=== PATIENT | female | born 1940 | race Caucasian/White ===

== ENCOUNTER 2017-10-24 11:45 | Inpatient (IN) ==
--- NOTE | 2017-10-24 12:19 | Emergency Department Note ---
Disposition Clinical Impression: Pulmonary edema Qualifiers: Chronicity: acute Qualified Code(s): J81.0 - Acute pulmonary edema Chest pain Qualifiers: Chest pain type: precordial pain Qualified Code(s): R07.2 - Precordial pain Disposition: Admitted As Inpatient Referrals: Sukh Piña MD [Primary Care Provider] - Forms: ED Satisfaction Letter Time of Disposition: 13:43 Chest Pain HPI - General Chief Complaint: ED Chest Pain Stated Complaint: need CAT scan sent per pcp. cp/sob Time Seen by Provider: 10/24/17 11:55 Source: patient Limitations: no limitations Vital Signs Reviewed: Yes Nursing Notes Reviewed: Yes - History of Present Illness HPI Narrative: This is a 77-year-old female sent from rheumatology because of chest pain. She states she has been having episodes of exertional chest pain with radiation into her left back for the last 2 weeks. She states that her chief nurse anesthetist has been tapering down her prednisone dose and that she is now taking 7 mg of prednisone daily. She states that she has gained a significant amount of weight since she will started on prednisone she reports shortness of breath in addition to exertional chest pain. Both symptoms resolved when she sits down and rests. She states she has a history of GI bleeding while taking warfarin, and as a result has an IVC filter but no anticoagulation. Severity scale (1-10): 5 - Related Data Home Medications Medication Instructions Recorded Confirmed Acetaminophen [Tylenol] 650 mg PO Q6HR PRN 03/19/17 03/19/17 Aspirin 81 mg PO DAILY 03/19/17 03/19/17 Diltiazem HCl [Diltiazem 12Hr ER] 120 mg PO DAILY 03/19/17 03/19/17 Ergocalciferol (VITAMIN D2) 50,000 unit PO QMONTH 03/19/17 03/19/17 [Vitamin D2] Levothyroxine Sodium 112 mcg PO 0630 03/19/17 03/19/17 Pregabalin [Lyrica] 100 mg PO BID 03/19/17 03/19/17 Warfarin [Coumadin] 5 mg PO 1800 03/19/17 03/19/17 Allergies Allergy/AdvReac Type Severity Reaction Status Date / Time Hydromorphone [From Dilaudid] Allergy Difficulty Verified 10/24/17 11:51 Breathing ibuprofen Allergy Abdominal Verified 10/24/17 11:51 Pain All systems ED: reviewed and negative except as stated. Constitutional: Reports: weight change (Weight gain since on prednisone) Eyes: Denies: eye pain, eye discharge, vision change Cardiovascular: Reports: chest pain (Exertional chest pain), dyspnea on exertion Respiratory: Reports: dyspnea (Shortness of breath with exertion). Denies: cough, wheezes, sputum production Gastrointestinal: Denies: abdominal pain, nausea, vomiting, diarrhea, constipation, hematemesis, melena, hematochezia Genitourinary: Denies: dysuria, frequency, hematuria, discharge Musculoskeletal: Reports: back pain, other (Left shoulder pain) Integumentary: Denies: rash, abrasion, lesions Psychiatric: Denies: anxiety, depression, suicidal thoughts, homicidal thoughts , auditory hallucinations, visual hallucinations Endocrine: Denies: fatigue Hematological/Lymphatic: Denies: easy bleeding, easy bruising Chest Pain PMH - Past Medical History Medical history: Reports: atrial fibrillation, DVT (12/2016), glaucoma, kidney stones, osteoporosis, thyroid disease Psychiatric history: Reports: no psych history - Social History Smoking Status: Never smoker Alcohol use: Reports: none Drug use: Reports: none Physical Exam - General Limitations: no limitations General appearance: alert, in no apparent distress - Head Head exam: atraumatic, normocephalic, normal inspection - Eye Eye exam: Present: normal appearance, PERRL, EOMI - Neck Neck exam: Present: normal inspection, full ROM, trachea midline - Chest Chest inspection: Present: normal inspection, symmetric chest wall rise - Respiratory Respiratory exam: Present: normal lung sounds bilaterally - Cardiovascular Cardiovascular exam: Present: regular rate, normal rhythm, normal heart sounds - Abdominal Exam Abdominal exam: Present: soft, Non-Tender. Absent: tenderness, distention, guarding, rebound, rigidity - Extremities Exam Extremities exam: Present: normal inspection, full ROM. Absent: tenderness, pedal edema - Neurological Exam Neurological exam: Present: alert, oriented X3 - Psychiatric Psychiatric exam: Present: normal affect, normal mood - Skin Skin exam: Present: warm, dry, intact, normal color Course Course Narrative: This is a 77 y/o female with exertional chest oain with radiation to the left shoulder. Most likely explanation is angina. Vital Signs Temperature 97.7 F 10/24/17 11:51 Pulse Rate 91 10/24/17 11:51 Respiratory Rate 24 10/24/17 11:51 Blood Pressure 100/66 10/24/17 11:51 O2 Sat by Pulse Oximetry 93 10/24/17 11:51 Temperature 97.7 F 10/24/17 11:51 Pulse Rate 73 10/24/17 12:16 Respiratory Rate 18 10/24/17 12:16 Blood Pressure 116/91 10/24/17 12:16 O2 Sat by Pulse Oximetry 93 10/24/17 12:16 Oxygen Delivery Oxygen Delivery Nasal Cannula Chest Pain - MDM Narrative Medical decision making narrative: This is a 77-year-old female who appears to have CHF. She has no prior history of CHF, but her exertional chest pain and shortness of breath consistent with that etiology. Because her blood pressure was in the age of 110-120 systolic, I ordered enalaprilat and his first dose of furosemide to assist in volume redistribution. I discussed her name with the on-call hospitalist, who accepted her for admission - Lab Data Lab results reviewed: Yes I reviewed the patient's lab results. Lab results narrative: CBC shows slight leukocytosis BMP was unremarkable Troponin was low Result diagrams: 10/24/17 12:30 10/24/17 12:30 Lab Results 10/24/17 10/24/17 Range/Units 12:30 12:30 WBC 12.7 H (4.3-11.1) K/mcL RBC 4.12 (3.82-4.97) M/mcL Hgb 11.8 (11.5-15.4) g/dL Hct 38.2 (35.3-44.9) % MCV 92.7 (83.0-100.0) fL MCH 28.6 (28.0-33.3) pg MCHC 30.9 L (31.6-35.5) g/dL RDW 15.2 H (11.5-14.5) % Plt Count 258 (140-400) K/mcL MPV 9.7 (9.4-12.4) fL Immature Gran % 0.8 (0-4) % Seg Neutrophils % 79.3 % Lymphocytes % 8.4 % Monocytes % 8.5 % Eosinophils % 2.4 % Basophils % 0.6 % Neutrophils # 10.1 H (1.6-8.9) K/mcL Lymphocytes # 1.1 (0.6-4.6) K/mcL Monocytes # 1.1 (0.0-1.3) K/mcL Eosinophils # 0.3 (0.0-0.6) K/mcL Basophils # 0.1 (0.0-0.2) K/mcL Sodium 138 (136-145) mEq/L Potassium 3.7 (3.5-5.1) mEq/L Chloride 106 (98-107) mEq/L Carbon Dioxide 23 (23-29) mEq/L BUN 15 (8-23) mg/dL Creatinine 0.89 (0.60-1.20) mg/dL Est GFR ( Amer) > 60 (> 60) Est GFR (Non-Af Amer) > 60 (> 60) BUN/Creatinine Ratio 17 (6-26) Glucose 204 H (70-105) mg/dL Calculated Osmolality 293 (280-300) Calcium 9.1 (8.6-10.3) mg/dL Troponin I < 0.03 (< 0.04) ng/mL - Radiology Data Radiology results reviewed: Yes I reviewed the patient's radiology results. Chest x-ray showed moderate left and small right pleural effusions with interstitial edema consistent with CHF. - EKG Data EKG attestation: Yes I reviewed and interpreted this EKG. EKG results narrative: ECG showed sinus rhythm, 1 PVC, normal intervals, normal axis, no ST Ya, T- wave inversions in V2 through V5
[2017-10-24 12:40] LABS: Basophils # 0.1 K/mcL (0.0-0.2); Basophils % 0.6 %; Eosinophils # 0.3 K/mcL (0.0-0.6); Eosinophils % 2.4 %; Hematocrit 38.2 % (35.3-44.9); Hemoglobin 11.8 g/dL (11.5-15.4); Immature Granulocytes % 0.8 % (0-4); Lymphocytes # 1.1 K/mcL (0.6-4.6); Lymphocytes % 8.4 %; Mean Corpuscular HGB Conc 30.9 g/dL (31.6-35.5); Mean Corpuscular Hemoglobin 28.6 pg (28.0-33.3); Mean Corpuscular Volume 92.7 fL (83.0-100.0); Mean Platelet Volume 9.7 fL (9.4-12.4); Monocytes # 1.1 K/mcL (0.0-1.3); Monocytes % 8.5 %; Neutrophils # 10.1 K/mcL (1.6-8.9); Platelet Count 258 K/mcL (140-400); Red Blood Count 4.12 M/mcL (3.82-4.97); Red Cell Distribution Width 15.2 % (11.5-14.5); Segmented Neutrophils % 79.3 %
[2017-10-24 13:06] LABS: BUN/Creatinine Ratio 17 (6-26); Blood Urea Nitrogen 15 mg/dL (8-23); Calcium 9.1 mg/dL (8.6-10.3); Carbon Dioxide 23 mEq/L (23-29); Chloride 106 mEq/L (98-107); Glucose 204 mg/dL (70-105); Osmolality,Calculated 293 (280-300); Potassium 3.7 mEq/L (3.5-5.1); Sodium 138 mEq/L (136-145); eGFR For Non-African Americans > 60 (> 60)
[2017-10-24 13:14] LABS: Troponin I < 0.03 ng/mL (< 0.04)
[2017-10-24] MEDS ORDERED: Furosemide 20 MG/2 ML VIAL IVP ONE (13:21)
[2017-10-24] MEDS ORDERED: Isovue-370 500 ML INFUS..BTL IV ONE (14:33)
[2017-10-24] MEDS ORDERED: Naloxone 0.4 MG/ML INJ IVP PRN (14:34)
[2017-10-24] MEDS: Pantoprazole 40 MG VIAL IVP SCH (15:16)
[2017-10-24] MEDS ORDERED: Aminoglycoside Consult 1 EACH MC ONE (15:21)
--- NOTE | 2017-10-24 15:34 | Internal Med History&Physical ---
<Georges Alejandra - Last Filed: 10/24/17 22:51> Date of Encounter: 10/24/17 Time of Encounter: 13:30 Internal Medicine - H&P: HPI Chief complaint: CP Admitted From: Emergency Dept Plans for Post Hospital Care: Home History of present illness: Ms. Duarte is a 77 year old female w/PMH of atrial fibrillation, DVT/PE in 12/2016 , cataracts, kidney stones, osteoporosis, and thyroid disease presents from the ED with chief complaint of chest pain that began last week and has been intermittent. Patient reports chest pain as centralized in chest with radiation to her left shoulder which becomes worse with exertion. Associated symptoms: Fatigue, weakness, SOB, diaphoresis. Patient also reports she has been weak for the past month following a 41 day admission at [place] for GI bleed. Was previously on Coumadin. Atrial fibrillation but was taken off following GI bleed and IVC filter placement. Not currently anticoagulated. Patient denies recent illness, fever, chills, nausea, vomiting, headache, changes in vision, abdominal pain, diarrhea, constipation, cough, chest congestion, dizziness, lightheadedness, numbness, tingling, pre-syncope, or syncope. Past Med Surg Social Fam HX - Past Medical History Source: patient, old records reviewed, obtained from family Medical history: atrial fibrillation, DVT (12/2016), kidney stones, osteoporosis , thyroid disease, other (Cataracts) Additional medical history: IRREGULAR HEARTBEAT. HEADACHES. VENOUS INSUFFICIENCY. VARICOSE VEINS Psychiatric history: no psych history - Past Surgical History Additional surgical history: THYROIDECTOMY. CATARACT REMOVAL. KIDNEY STONES REMOVED X2. VEIN SURGERY. SHOULDER SCOPE. COLONOSCOPY - Social History Smoking Status: Never smoker Smokeless Tobacco Status: No Alcohol use: none Drug use: none Current living situation: Home, With Family Activity Level: Uses cane/walker Recent Out of Country Travel Within the Last 8 Weeks: No Exposure or Possible Exposure to Illness During Travel: No - Family History Father Race: Family Member Ethnicity: Non- Living Status: Age at : 31 Cause of : Leukemia Hx Family Cancer: Yes (Leukemia) Mother Race: Family Member Ethnicity: Non- Living Status: Age at : 79 Cause of : Brain aneurysm Hx Family Cardiac Disorders: Yes (Brain aneurysm) Brother Race: Family Member Ethnicity: Non- Living Status: Still Living Hx Family Cardiac Disorders: Yes (CAD) Hx Family Respiratory Disorders: Yes (COPD) Sister Race: Family Member Ethnicity: Non- Living Status: Still Living Hx Family GI Disorders: Yes (Diverticulosis) Internal Medicine - H&P: Meds Ergocalciferol (VITAMIN D2) [Vitamin D2] 50,000 unit PO QMONTH 03/19/17 [History ] Levothyroxine Sodium 112 mcg PO 0630 03/19/17 [History] Diltiazem CD (24hr) [Cardizem CD] 240 mg PO DAILY 10/24/17 [History] predniSONE [PredniSONE] 2 mg PO DAILY 10/24/17 [History] 3 Allergy/AdvReac Type Severity Reaction Status Date / Time Hydromorphone [From Dilaudid] Allergy Difficulty Verified 10/24/17 11:51 Breathing ibuprofen Allergy Abdominal Verified 10/24/17 11:51 Pain iron AdvReac See Verified 10/24/17 15:37 Comments All Systems PM: A 10-system review of systems was performed and is negative for pertinent findings except as documented above in the HPI. - Constitutional Constitutional: as per HPI, fatigue, weakness (Bilateral LEs), weight gain (D/t steroids), no chills, no fever(s), no night sweats - EENT Eyes: no change in vision, no discharge, no pain, no photophobia Ears: no ear discharge, no ear pain, no tinnitus Nose, mouth and throat: no dysphagia, no nasal discharge, no neck pain, no sore throat - Breasts Breasts: as per HPI - Cardiovascular Cardiovascular ROS IM: as per HPI, chest pain, diaphoresis, dyspnea, dyspnea on exertion, irregular heart rhythm, no lightheadedness, no palpitations, no syncope - Respiratory Respiratory: as per HPI, dyspnea, no cough, no wheezing, no excessive phlegm production - Gastrointestinal Gastrointestinal: no abdominal pain, no diarrhea, no hematemesis, no hematochezia, no melena, no nausea, no vomiting - Genitourinary Genitourinary: no change in urinary stream, no dysuria, no flank pain, no hematuria Menstruation: as per HPI - Musculoskeletal Musculoskeletal ROS IM: no numbness, no tingling - Integumentary Integumentary IM: no rash, no unusual bruising - Neurological Neurological ROS: no confusion, no convulsions, no focal weakness, no numbness, no tingling, no tremor(s) - Psychiatric Psychiatric: as per HPI - Endocrine Endocrine IM: as per HPI - Hematologic/Lymphatic Hematologic/Lymphatic: no easy bruising - Allergic/Immunologic Allergic/Immunologic: as per HPI - Constitutional Vitals: Temp Pulse Resp BP Pulse Ox 97.7 F 78 15 94/58 93 10/24/17 15:28 10/24/17 15:28 10/24/17 15:28 10/24/17 15:28 10/24/17 15:28 General appearance: Present: cooperative, A&O X 3, pleasant, no acute distress, obese, answers questions appropriately - Head Head exam: Present: atraumatic, normocephalic - Eye Eye exam: Present: PERRL, conjuntiva pink, sclera anicteric Pupils: Present: PERRL - ENT ENT exam: Present: normal exam - Neck Neck exam general surgery: Present: normal inspection, supple, trachea midline. Absent: lymphadenopathy - Respiratory Respiratory exam: Present: CTAB. Absent: accessory muscle use, rales, rhonchi, wheezes - Cardiovascular Cardiovascular exam: Present: RRR, +S1, +S2. Absent: diastolic murmur, gallop, rubs, systolic murmur - GI/Abdominal GI/Abdominal exam: Present: normal bowel sounds, soft, no peritoneal signs. Absent: distended, tenderness - Rectal Rectal exam: Present: deferred - Additional comments: exam deferred. - Extremities Exam Extremities exam: Present: warm, radial pulses palpable and symmetrical. Absent : calf tenderness, cyanotic, pedal edema - Back Exam Back exam: Present: normal inspection - Neurological Exam Neurological exam: Present: CN II-XII intact, oriented X3, no focal deficits. Absent: pronater drift, facial droop, speech deficit - Psychiatric Psychiatric exam: Present: normal affect, normal mood - Skin Skin exam: Present: dry, intact Internal Med - H&P Results - Labs CBC & Chem 7: 10/24/17 12:30 10/24/17 12:30 - EKG Data EKG shows normal: sinus rhythm - EKG Data Prior EKG available for review: yes EKG comments: 10/24/17 15:41 EKG dated 02/23/11 shows sinus rhythm with possible anterior infarct of indeterminate age. EKG dated 10/24/17 shows sinus rhythm with occasional ventricular premature complexes and nonspecific T-wave abnormality. - Impressions ITS Impressions Chest CTA 10/24/17 14:33 IMPRESSION: 1. No evidence of pulmonary embolism 2. Multifocal peripheral infiltrates having appearance most consistent with pneumonia. No definite CHF D/ / Forest Kenny MD / Forest Kenny MD Interpreting Provider: Forest Kenny MD - Diagnostic Studies Chest x-ray Additional comments: Impressions Chest X-Ray 10/24/17 12:16 IMPRESSION: Cardiomegaly with moderate left and small right pleural effusions as well as mild interstitial pulmonary edema suggesting CHF. D/ / Tapan Lindo MD / Tapan Lindo MD Interpreting Provider: Tapan Lindo MD CT scan - chest Additional comments: Impressions Chest CTA 10/24/17 14:33 IMPRESSION: 1. No evidence of pulmonary embolism 2. Multifocal peripheral infiltrates having appearance most consistent with pneumonia. No definite CHF D/ / Forest Kenny MD / Forest Kenny MD Interpreting Provider: Forest Kenny MD - Assessment and plan (1) Chest pain Current Visit: Yes Status: Acute Assessment and plan: Acute CP that patient states began last week and has been intermittent. Patient reports chest pain as centralized in chest with radiation to her left shoulder which becomes worse with exertion. Associated symptoms: Fatigue, weakness, SOB, diaphoresis. History of atrial fibrillation, DVT, PE. Denies history of previous CO or stent placement. Also denies recent cardiac workup. Initial troponin <0.03. Will trend. Aspirin given in ED. Lipitor 80 mg now. Nitroglycerin SL when necessary. Continuous cardiac telemetry. Echocardiogram. Nothing by mouth at midnight for a.m. stress test if troponins remain normal. Consider cardiology consult if troponins, echocardiogram, and/ or stress test results abnormal. Pt. discussed w/Dr. Rudolph who agrees w/plan of care. Pt. is high risk for further morbidity and cardiac event due to current CP symptoms for the past week that are unresolved, current HCAP, hx; and risk factors of atrial fibrillation not on anticoagulation and current obesity. Observation. Qualifiers: Chest pain type: precordial pain Qualified Code(s): R07.2 - Precordial pain (2) HCAP (healthcare-associated pneumonia) Current Visit: Yes Status: Acute Assessment and plan: Acute HCAP. Pt. reports 41-day hospitalization @ [place] in August for GI bleed. Current SOB and WBC of 12.7. CTA of chest to r/o PE d/t pts. hx shows no evidence of PE multifocal peripheral infiltrates having appearance most consistent with pneumonia. No definite CHF. Blood cultures 2. Legionella and strep pneumoniae antigens ordered. IVPB vancomycin with pharmacy dosing and Zosyn 3.375 gm Q8HR for infection coverage. Patient does not currently meet sepsis criteria but will be monitored closely. Monitor patient and follow- up labs. Supplemental O2 with titration and SPO2 monitoring. Xopenex IH. (3) SOB (shortness of breath) Current Visit: Yes Status: Acute Assessment and plan: Acute SOB w/CP sx. Concern for possible PE d/t pts. previous hx of PE in 2017. CTA of chest shows no evidence of pulmonary embolism. Supplemental O2 with titration and SPO2 monitoring. Xopenex IH due to patient's atrial fibrillation. (4) Weakness of both legs Current Visit: Yes Status: Acute Assessment and plan: Acute weakness of bilateral LEs following 41-day hospitalization approximately one month ago. Patient states she has difficulty with ambulation. Falls/ safety precautions. Up with assist only. PT/OT consults ordered. (5) Pulmonary edema Current Visit: Yes Status: Acute Assessment and plan: Acute pulmonary edema suggesting CHF on CXR. Also noted is cardiomegaly with moderate left and small right pleural effusions. Patient given 40 mg Lasix IVP in ED. And 0.5 L daily fluid restriction. Monitor I&O and daily weight. Will add additional IVP lasix if warranted. Currently no pedal edema on exam. Qualifiers: Chronicity: acute Qualified Code(s): J81.0 - Acute pulmonary edema (6) Atrial fibrillation Current Visit: Yes Status: Chronic Assessment and plan: Hx of chronic paroxysmal Afib. Currently SR. Continuous cardiac telemetry. Continue pts. Cardizem PO. Qualifiers: Atrial fibrillation type: paroxysmal Qualified Code(s): I48.0 - Paroxysmal atrial fibrillation (7) Personal history of DVT (deep vein thrombosis) Current Visit: Yes Status: Resolved Assessment and plan: Hx of DVT/PE in 12/2016. DVT was behind right knee. Pt. reports being on Coumadin but was taken off approx. 1 month ago following a GI bleed requiring blood transfusions and a 41-day hospital stay. IVC filter placed. SCDs for DVT prophylaxis. (8) DVT prophylaxis Current Visit: Yes Status: Acute Assessment and plan: Bilateral SCDs on LEs for DVT prophylaxis due to history of GI bleeding approximately one month requiring 11 transfusions and a 41-day hospital stay @ [place]. (9) Hx of thyroidectomy Current Visit: Yes Status: Chronic Assessment and plan: Hx of thyroidectomy. Continue patient's levothyroxine. - Time Spent With Patient Total time spent is greater than 50% in coordination of care (as documented) at patient's floor/unit and/or counseling patient: Greater than 35 minutes <Pietro Rudolph - Last Filed: 10/25/17 16:22> Date of Encounter: 10/25/17 Internal Medicine - H&P: HPI History of present illness: Ms. Duarte is a 77 year old female All Systems PM: A 10-system review of systems was performed and is negative for pertinent findings except as documented above in the HPI. - Constitutional Vitals: Temp Pulse Resp BP Pulse Ox 97.6 F 91 16 116/72 93 10/25/17 15:23 10/25/17 15:23 10/25/17 15:23 10/25/17 15:23 10/25/17 15:23 Internal Med - H&P Results - Labs CBC & Chem 7: 10/25/17 03:59 10/25/17 03:59 Labs: Short CBC 10/25/17 Range/Units 03:59 WBC 10.6 (4.3-11.1) K/mcL Hgb 10.8 L (11.5-15.4) g/dL Hct 35.5 (35.3-44.9) % Plt Count 248 (140-400) K/mcL Neutrophils # 7.4 (1.6-8.9) K/mcL BMP 10/25/17 03:59 Sodium 140 Potassium 4.2 Chloride 105 Carbon Dioxide 27 BUN 17 Creatinine 1.09 Glucose 129 H Calcium 8.6 Cardiac Enzymes 10/24/17 10/24/17 Range/Units 16:06 23:11 Troponin I < 0.03 < 0.03 (< 0.04) ng/mL Liver Function 10/25/17 Range/Units 03:59 Total Bilirubin 0.6 (0.3-1.0) mg/dL AST 9 L (13-39) Units/L ALT 7 (7-52) Units/L Alkaline Phosphatase 45 (34-104) Units/L Albumin 3.3 L (3.5-5.7) g/dL - Impressions ITS Impressions Chest CTA 10/24/17 14:33 IMPRESSION: 1. No evidence of pulmonary embolism 2. Multifocal peripheral infiltrates having appearance most consistent with pneumonia. No definite CHF D/ / Forest Kenny MD / Forest Kenny MD Interpreting Provider: Forest Kenny MD Echocardiogram 10/24/17 14:37 Impressions: LVEF 55%. Mild left ventricular diastolic dysfunction. Normal right ventricular structure and function. No significant valvular dysfunction. No pulmonary hypertension. Left Ventricular Wall Motion: Rest Echo Findings All wall segments showed normal motion. Findings: Study Quality * Technically adequate exam. ECG Findings * Normal sinus rhythm. Left Ventricle * LVEF 55%. * Mild left ventricular diastolic dysfunction. * Normal LV chamber size and wall thickness. Right Ventricle * Normal right ventricular structure and function. Left Atrium * Normal left atrial size. Right Atrium * Normal right atrial size. Mitral Valve * Normal mitral valve structure. * No mitral stenosis. * Trace mitral regurgitation. Aortic Valve * No aortic regurgitation. * Aortic valve not well visualized. * No aortic stenosis. Tricuspid Valve * Tricuspid valve not well visualized. * No tricuspid regurgitation. Pulmonic Valve * Pulmonic valve is not well visualized. * No pulmonic stenosis. * No pulmonic regurgitation. Pulmonary Artery * Pulmonary artery not well visualized. Aorta * Normally sized aortic root. Pericardium * There is no pericardial effusion present. Interatrial Septum * No evidence of PFO by color Doppler. IVC * The IVC is not well evaluated. - Attending Attestation Discussed with CASEY and agree with assessment and plan as above. Will rule patient out for ACS due to chest pain and treat with IV antibiotics as above for HAP - Assessment and plan (1) Atrial fibrillation Current Visit: Yes Status: Chronic Qualifiers: Atrial fibrillation type: paroxysmal Qualified Code(s): I48.0 - Paroxysmal atrial fibrillation (2) Pulmonary edema Current Visit: Yes Status: Acute Qualifiers: Chronicity: acute Qualified Code(s): J81.0 - Acute pulmonary edema (3) Chest pain Current Visit: Yes Status: Acute Qualifiers: Chest pain type: precordial pain Qualified Code(s): R07.2 - Precordial pain (4) Personal history of DVT (deep vein thrombosis) Current Visit: Yes Status: Resolved (5) SOB (shortness of breath) Current Visit: Yes Status: Acute (6) Weakness of both legs Current Visit: Yes Status: Acute (7) DVT prophylaxis Current Visit: Yes Status: Acute (8) HCAP (healthcare-associated pneumonia) Current Visit: Yes Status: Acute (9) Hx of thyroidectomy Current Visit: Yes Status: Chronic - Time Spent With Patient Total time spent is greater than 50% in coordination of care (as documented) at patient's floor/unit and/or counseling patient:
[2017-10-24] MEDS ORDERED: Nitroglycerin 0.4 MG TAB.SUBL SL PRN (15:37)
[2017-10-24] MEDS: Piperacillin/Tazobactam 3.375 GM in 0.9 % Sodium Chloride Mini Bag 100 ML IVPB SCH ×2 (16:23→23:39)
[2017-10-24] MEDS: Acetaminophen 325 MG TABLET PO PRN (20:09)
[2017-10-24] MEDS: Levalbuterol Neb 1.25 MG/3 ML IH SCH (22:17)
[2017-10-24] MEDS: Melatonin 3 MG TABLET PO PRN (22:47)
--- NOTE | 2017-10-25 02:14 | Electrocardiograph Report ---
[place] [id number] Test Date: 2017-10-24 Pat Name: Charline Duarte Department: 103 Room: 3B33 Gender: F Kitchen Stewardess: MARCOS : 1940 Requested By: Georges Dougherty Order Number: [id number] Reading MD: Alysha Grier Measurements Intervals [place] Rate: 77 P: 64 [place]: 164 QRS: -6 QRSD: 82 T: 36 QT: 355 QTc: 387 Interpretive Statements SINUS RHYTHM WITH OCCASIONAL VENTRICULAR PREMATURE COMPLEXES NONSPECIFIC T-WAVE ABNORMALITY Electronically Signed On 10-24-2017 16:07:15 EDT by Alysha Grier
[2017-10-25] MEDS: Acetaminophen 325 MG TABLET PO PRN ×3 (02:29→16:15)
[2017-10-25] MEDS: Levalbuterol Neb 1.25 MG/3 ML IH SCH ×4 (03:59→22:02)
[2017-10-25 04:19] LABS: Basophils # 0.1 K/mcL (0.0-0.2); Basophils % 0.6 %; Eosinophils # 0.3 K/mcL (0.0-0.6); Hematocrit 35.5 % (35.3-44.9); Hemoglobin 10.8 g/dL (11.5-15.4); Immature Granulocytes % 0.7 % (0-4); Lymphocytes # 1.7 K/mcL (0.6-4.6); Lymphocytes % 16.2 %; Mean Corpuscular HGB Conc 30.4 g/dL (31.6-35.5); Mean Corpuscular Hemoglobin 28.3 pg (28.0-33.3); Mean Corpuscular Volume 92.9 fL (83.0-100.0); Mean Platelet Volume 9.7 fL (9.4-12.4); Monocytes % 9.5 %; Neutrophils # 7.4 K/mcL (1.6-8.9); Platelet Count 248 K/mcL (140-400); Red Blood Count 3.82 M/mcL (3.82-4.97); Red Cell Distribution Width 15.5 % (11.5-14.5)
[2017-10-25 04:30] LABS: Albumin 3.3 g/dL (3.5-5.7); Albumin/Globulin Ratio 1.1 (1.1-2.2); Bilirubin,Total 0.6 mg/dL (0.3-1.0); Calcium 8.6 mg/dL (8.6-10.3); Chol/HDL Ratio 4.2 (0-4.9); Globulin 3.1 g/dL (2.4-3.5); Magnesium 1.8 mg/dL (1.6-2.6); Potassium 4.2 mEq/L (3.5-5.1); Total Protein 6.4 g/dL (6.4-8.9)
[2017-10-25 04:37] LABS: Prothrombin Time 11.7 Seconds (9.4-12.1)
[2017-10-25 04:45] LABS: Thyroid Stimulating Hormone 1.534 mcIU/mL (0.340-5.600)
[2017-10-25] MEDS ORDERED: Regadenoson 0.4 MG/5 ML SYRINGE IVP ONE (06:13)
[2017-10-25 07:34] LABS: Estimated Average Glucose 160 mg/dl; Hemoglobin A1C 7.2 %
[2017-10-25] MEDS ORDERED: predniSONE 1 MG TABLET PO SCH (09:00)
[2017-10-25] MEDS: Diltiazem CD (24hr) 240 MG CAPSULE PO SCH (09:06)
[2017-10-25] MEDS: Pantoprazole 40 MG VIAL IVP SCH (09:10)
[2017-10-25] MEDS ORDERED: predniSONE 5 MG TABLET PO ONE (09:49)
[2017-10-25] MEDS: Piperacillin/Tazobactam 3.375 GM in 0.9 % Sodium Chloride Mini Bag 100 ML IVPB SCH ×2 (10:39→19:44)
--- NOTE | 2017-10-25 17:49 | Internal Med Progress Note ---
Hospitalist Progress Note - Encounter Date of Encounter: 10/25/17 Time of Encounter: 10:45 - Subjective Interval History: Patient was seen and assessed at bedside at 10:45 AM. Patient repeatedly discussed her diet and stating that she had not had anything to drink since last night. She reports left lower quadrant "pain and bloating for a long time , a couple of months." She reports that she has seen her primary care provider' s and con any answers. She denies chest pain, shortness of breath, nausea, vomiting, diarrhea. She denies headache or blurred vision, no increased peripheral edema. - Exam Vitals: Temp Pulse Resp BP Pulse Ox 97.6 F 91 18 116/72 95 10/25/17 15:23 10/25/17 15:23 10/25/17 16:01 10/25/17 15:23 10/25/17 16:01 Exam: General: Pt resting quietly on bed, no distress. Skin: pwd, no rashes, lesions, redness Neurological: Pt is alert and awake, oriented x 3, Speech is clear, PERRLA, EOMI , no nystagmus, no pronator drift. strength equal x 4 extremities HEENT: mucous mumbranes moist, no conjuctival pallor Neck: supple, no tracheal deviation, no lymphadenopathy, tenderness, no thyromegaly Heart: S1S2 heard without gallops, clicks, murmurs, no bradycardia or tachycardia, pt has no peripheral edema, pedal and radial pulses palpable bilaterally. Lungs: clear and diminished throughout without wheezing, rales, or ronchi, respirations are unlabored Abdomen: soft with bowel sound present, no hepatomegaly. Abdomen is rounded, obese, tender to palpation and left lower quadrant. Psych: Normal affect with good eye contact - Assessment and Plan (1) Atrial fibrillation Current Visit: Yes Status: Chronic Assessment and Plan: History of chronic A. fib. Normal sinus on the monitor. Continue Cardizem and Eliquis by mouth. Continue telemetry (2) Pulmonary edema Current Visit: Yes Status: Acute Assessment and Plan: Acute pulmonary edema suggesting CHF on CXR. Also noted is cardiomegaly with moderate left and small right pleural effusions. 1.5 L daily fluid restriction. Monitor I&O and daily weight. Will add additional IVP lasix if warranted. Currently no pedal edema on exam. Lungs are clear and diminished. Current negative fluid deficit of 1.2 L (3) Chest pain Current Visit: Yes Status: Resolved Assessment and Plan: Pt denies. Stress test negative for ischemia or infarct, patient had occasional PACs with a gated EF of greater than 70%. CT head is negative for PE, and there are multifocal peripheral infiltrates most consistent with pneumonia. Patient is being treated with IV vancomycin and Zosyn. Echocardiogram shows an LVEF of 55% with mild LV DD, no significant valvular dysfunction. There is no pulmonary hypertension noted. Chest pain is likely secondary to pneumonia. Continue IV antibiotics and telemetry, pain control as needed. O2 as needed to maintain sats greater than 92%. (4) Personal history of DVT (deep vein thrombosis) Current Visit: Yes Status: Resolved Assessment and Plan: Patient had a popliteal DVT in December,. Patient was on Coumadin at that time but was taken off approximately 1 month ago after GI bleed requiring blood transfusions 41 today he states he [facility]. Patient has an IVC filter. SCDs are ordered for DVT prophylaxis. (5) SOB (shortness of breath) Current Visit: Yes Status: Acute Assessment and Plan: Plan as above. (6) Weakness of both legs Current Visit: Yes Status: Acute Assessment and Plan: Patient had recent hospitalization lasting 41 days, patient now has hospital acquired pneumonia. Likely multifactorial secondary to above as well as deconditioning and obesity PT/OT consults, monitor for falls and safety. (7) DVT prophylaxis Current Visit: Yes Status: Acute Assessment and Plan: Bilateral SCDs ordered. Plan as above for DVT (8) HCAP (healthcare-associated pneumonia) Current Visit: Yes Status: Acute Assessment and Plan: Patient hospitalized for 41 days at [place] for GI bleed. CTA chest showed multi focal peripheral infiltrates most consistent with ammonia. Strep pneumo and legionella are negative. Patient with leukocytosis and shortness of breath on admission. Resolved now. Patient was started on IV vancomycin and Zosyn, consulted with pharmacy, they have recommended stopping vancomycin. We will continue Zosyn. Continue O2 as needed to maintain sats greater than 92%. Continue Xopenex nebulizer treatments (9) Hx of thyroidectomy Current Visit: Yes Status: Chronic Assessment and Plan: Hx of thyroidectomy. Continue patient's levothyroxine. - Time Spent with Patient Total time spent is greater than 50% in coordination of care (as documented) at patient's floor/unit and/or counseling patient: less than 15 minutes Plan of Care Discussed with: patient Internal Medicine: Result - Labs CBC & Chem 7: 10/25/17 03:59 10/25/17 03:59 Labs: Short CBC 10/25/17 Range/Units 03:59 WBC 10.6 (4.3-11.1) K/mcL Hgb 10.8 L (11.5-15.4) g/dL Hct 35.5 (35.3-44.9) % Plt Count 248 (140-400) K/mcL Neutrophils # 7.4 (1.6-8.9) K/mcL BMP 10/25/17 03:59 Sodium 140 Potassium 4.2 Chloride 105 Carbon Dioxide 27 BUN 17 Creatinine 1.09 Glucose 129 H Calcium 8.6 Cardiac Enzymes 10/24/17 Range/Units 23:11 Troponin I < 0.03 (< 0.04) ng/mL Liver Function 10/25/17 Range/Units 03:59 Total Bilirubin 0.6 (0.3-1.0) mg/dL AST 9 L (13-39) Units/L ALT 7 (7-52) Units/L Alkaline Phosphatase 45 (34-104) Units/L Albumin 3.3 L (3.5-5.7) g/dL - ABG Interpretation ABG results: PT/INR, D-dimer PT 11.7 Seconds (9.4-12.1) 10/25/17 03:59 - Impressions Impressions Echocardiogram 10/24/17 14:37 Impressions: LVEF 55%. Mild left ventricular diastolic dysfunction. Normal right ventricular structure and function. No significant valvular dysfunction. No pulmonary hypertension. Left Ventricular Wall Motion: Rest Echo Findings All wall segments showed normal motion. Findings: Study Quality * Technically adequate exam. ECG Findings * Normal sinus rhythm. Left Ventricle * LVEF 55%. * Mild left ventricular diastolic dysfunction. * Normal LV chamber size and wall thickness. Right Ventricle * Normal right ventricular structure and function. Left Atrium * Normal left atrial size. Right Atrium * Normal right atrial size. Mitral Valve * Normal mitral valve structure. * No mitral stenosis. * Trace mitral regurgitation. Aortic Valve * No aortic regurgitation. * Aortic valve not well visualized. * No aortic stenosis. Tricuspid Valve * Tricuspid valve not well visualized. * No tricuspid regurgitation. Pulmonic Valve * Pulmonic valve is not well visualized. * No pulmonic stenosis. * No pulmonic regurgitation. Pulmonary Artery * Pulmonary artery not well visualized. Aorta * Normally sized aortic root. Pericardium * There is no pericardial effusion present. Interatrial Septum * No evidence of PFO by color Doppler. IVC * The IVC is not well evaluated. - VTE Documentation of Mechanical Device: Intermittent pneumatic compression device Consult Discharge Plan - Plan Referrals: Sukh Piña MD [Primary Care Provider] - 11/04/17 2:00 pm (1) Atrial fibrillation Qualifiers: Atrial fibrillation type: paroxysmal Qualified Code(s): I48.0 - Paroxysmal atrial fibrillation (2) Pulmonary edema Qualifiers: Chronicity: acute Qualified Code(s): J81.0 - Acute pulmonary edema (3) Chest pain Qualifiers: Chest pain type: precordial pain Qualified Code(s): R07.2 - Precordial pain
[2017-10-25] MEDS: Melatonin 3 MG TABLET PO PRN (20:53)
[2017-10-26] MEDS: Piperacillin/Tazobactam 3.375 GM in 0.9 % Sodium Chloride Mini Bag 100 ML IVPB SCH ×4 (00:01→23:53)
[2017-10-26] MEDS: Levalbuterol Neb 1.25 MG/3 ML IH SCH ×4 (03:56→21:41)
[2017-10-26] MEDS: Acetaminophen 325 MG TABLET PO PRN ×2 (04:21→18:03)
[2017-10-26 05:34] LABS: Basophils # 0.1 K/mcL (0.0-0.2); Basophils % 0.8 %; Eosinophils # 0.3 K/mcL (0.0-0.6); Eosinophils % 3.9 %; Hematocrit 33.2 % (35.3-44.9); Hemoglobin 9.9 g/dL (11.5-15.4); Immature Granulocytes % 0.9 % (0-4); Lymphocytes # 1.3 K/mcL (0.6-4.6); Mean Corpuscular HGB Conc 29.8 g/dL (31.6-35.5); Mean Corpuscular Hemoglobin 27.7 pg (28.0-33.3); Mean Platelet Volume 9.8 fL (9.4-12.4); Monocytes # 0.8 K/mcL (0.0-1.3); Monocytes % 10.7 %; Platelet Count 216 K/mcL (140-400); Red Blood Count 3.57 M/mcL (3.82-4.97); Red Cell Distribution Width 15.6 % (11.5-14.5); Segmented Neutrophils % 66.7 %
[2017-10-26 05:55] LABS: Alanine Aminotransferase 7 Units/L (7-52); Albumin 3.3 g/dL (3.5-5.7); Albumin/Globulin Ratio 1.1 (1.1-2.2); Alkaline Phosphatase 45 Units/L (34-104); Aspartate Amino Transferase 9 Units/L (13-39); BUN/Creatinine Ratio 13 (6-26); Bilirubin,Total 0.5 mg/dL (0.3-1.0); Blood Urea Nitrogen 12 mg/dL (8-23); Calcium 8.3 mg/dL (8.6-10.3); Carbon Dioxide 24 mEq/L (23-29); Chloride 107 mEq/L (98-107); Globulin 2.9 g/dL (2.4-3.5); Glucose 153 mg/dL (70-105); Osmolality,Calculated 291 (280-300); Potassium 3.7 mEq/L (3.5-5.1); Sodium 139 mEq/L (136-145); Total Protein 6.2 g/dL (6.4-8.9); eGFR For Non-African Americans 57 (> 60)
[2017-10-26] MEDS: Diltiazem CD (24hr) 240 MG CAPSULE PO SCH (08:45)
[2017-10-26] MEDS: predniSONE 1 MG TABLET PO SCH (08:45)
[2017-10-26] MEDS: predniSONE 5 MG TABLET PO SCH (08:46)
[2017-10-26] MEDS: Pantoprazole 40 MG VIAL IVP SCH (08:46)
[2017-10-26] MEDS ORDERED: predniSONE 5 MG TABLET PO SCH (09:00)
[2017-10-26 11:25] LABS: Transferrin 253 mg/dL (203-362)
[2017-10-26 11:33] LABS: % Iron Saturation 10 % (15-50); Iron 36 mcg/dL (50-170)
--- NOTE | 2017-10-26 18:07 | Internal Med Progress Note ---
Hospitalist Progress Note - Encounter Date of Encounter: 10/26/17 Time of Encounter: 12:20 - Subjective Interval History: Patient was seen and assessed at bedside at 1220 PM. Patient repeatedly discussed her diet again today and states that she is unable to eat her meals because she can't have salt. She denies chest pain, shortness of breath, nausea , vomiting, diarrhea. She denies headache or blurred vision, no increased peripheral edema. Pt states that she still feels weak and is not ready to go home. Pt will be discharged tomorrow if she remains stable. - Exam Vitals: Temp Pulse Resp BP Pulse Ox 98.3 F 88 15 119/77 96 10/26/17 15:44 10/26/17 15:44 10/26/17 16:10 10/26/17 15:44 10/26/17 16:10 Exam: General: Pt sitting in chair at bedside, no distress. Skin: pwd, no rashes, lesions, redness Neurological: Pt is alert and awake, oriented x 3, Speech is clear, PERRLA, EOMI , no nystagmus, no pronator drift. strength equal x 4 extremities HEENT: mucous mumbranes moist, no conjuctival pallor Neck: supple, no tracheal deviation, no lymphadenopathy, tenderness, no thyromegaly Heart: S1S2 heard without gallops, clicks, murmurs, no bradycardia or tachycardia, pt has no peripheral edema, pedal and radial pulses palpable bilaterally. Lungs: clear throughout without wheezing, rales, or ronchi, respirations are unlabored Abdomen: soft and non tender with bowel sound present, no hepatomegaly. Psych: Normal affect with good eye contact - Assessment and Plan (1) Atrial fibrillation Current Visit: Yes Status: Chronic Assessment and Plan: History of chronic A. fib. Normal sinus on the monitor. Continue Cardizem and Eliquis by mouth. Continue telemetry (2) Pulmonary edema Current Visit: Yes Status: Acute Assessment and Plan: Acute pulmonary edema suggesting CHF on CXR. Also noted is cardiomegaly with moderate left and small right pleural effusions. 1.5 L daily fluid restriction. Monitor I&O and daily weight. Will add additional IVP lasix if warranted. Currently no pedal edema on exam. Lungs are clear and diminished. Current negative fluid deficit of 1.1 L (3) Chest pain Current Visit: Yes Status: Resolved Assessment and Plan: Pt denies. Stress test negative for ischemia or infarct, patient had occasional PACs with a gated EF of greater than 70%. CT head is negative for PE, and there are multifocal peripheral infiltrates most consistent with pneumonia. Patient is being treated with IV Zosyn. Echocardiogram shows an LVEF of 55% with mild LV DD, no significant valvular dysfunction. There is no pulmonary hypertension noted. Chest pain is likely secondary to pneumonia. Continue IV antibiotics and telemetry, pain control as needed. O2 as needed to maintain sats greater than 92%. (4) Personal history of DVT (deep vein thrombosis) Current Visit: Yes Status: Resolved Assessment and Plan: Patient had a popliteal DVT in December,. Patient was on Coumadin at that time but was taken off approximately 1 month ago after GI bleed requiring blood transfusions and 41 today stay at [facility]. Patient has an IVC filter. SCDs are ordered for DVT prophylaxis. (5) SOB (shortness of breath) Current Visit: Yes Status: Acute Assessment and Plan: Plan as above. (6) Weakness of both legs Current Visit: Yes Status: Acute Assessment and Plan: Patient had recent hospitalization lasting 41 days, patient now has hospital acquired pneumonia. Likely multifactorial secondary to above as well as deconditioning and obesity PT/OT consults, monitor for falls and safety. (7) DVT prophylaxis Current Visit: Yes Status: Acute Assessment and Plan: Bilateral SCDs ordered. Plan as above for DVT (8) HCAP (healthcare-associated pneumonia) Current Visit: Yes Status: Acute Assessment and Plan: Patient hospitalized for 41 days at [place] recently for GI bleed. CTA chest showed multi focal peripheral infiltrates most consistent with ammonia. Strep pneumo and legionella are negative. Leukocytosis has resolved continue Zosyn. Continue O2 as needed to maintain sats greater than 92%. Continue Xopenex nebulizer treatments (9) Hx of thyroidectomy Current Visit: Yes Status: Chronic Assessment and Plan: Hx of thyroidectomy. Continue levothyroxine. DVT Prophylaxis: Plan as above - Time Spent with Patient Total time spent is greater than 50% in coordination of care (as documented) at patient's floor/unit and/or counseling patient: less than 15 minutes Plan of Care Discussed with: patient Internal Medicine: Result - Labs CBC & Chem 7: 10/26/17 05:21 10/26/17 05:21 Labs: Short CBC 08/04/18 Range/Units 05:21 WBC 7.5 (4.3-11.1) K/mcL Hgb 9.9 L (11.5-15.4) g/dL Hct 33.2 L (35.3-44.9) % Plt Count 216 (140-400) K/mcL Neutrophils # 5.0 (1.6-8.9) K/mcL BMP 10/26/17 05:21 Sodium 139 Potassium 3.7 Chloride 107 Carbon Dioxide 24 BUN 12 Creatinine 0.95 Glucose 153 H Calcium 8.3 L Liver Function 10/26/17 Range/Units 05:21 Total Bilirubin 0.5 (0.3-1.0) mg/dL AST 9 L (13-39) Units/L ALT 7 (7-52) Units/L Alkaline Phosphatase 45 (34-104) Units/L Albumin 3.3 L (3.5-5.7) g/dL - ABG Interpretation ABG results: PT/INR, D-dimer PT 11.7 Seconds (9.4-12.1) 10/25/17 03:59 - VTE Documentation of Mechanical Device: Intermittent pneumatic compression device Consult Discharge Plan - Plan Referrals: Sukh Piña MD [Primary Care Provider] - 11/04/17 2:00 pm (1) Atrial fibrillation Qualifiers: Atrial fibrillation type: paroxysmal Qualified Code(s): I48.0 - Paroxysmal atrial fibrillation (2) Pulmonary edema Qualifiers: Chronicity: acute Qualified Code(s): J81.0 - Acute pulmonary edema (3) Chest pain Qualifiers: Chest pain type: precordial pain Qualified Code(s): R07.2 - Precordial pain
[2017-10-26] MEDS: Cyanocobalamin (B-12) 1,000 MCG TABLET PO SCH (18:28)
[2017-10-26 20:47] LABS: Bilirubin,Urine Negative (Negative); Blood,Urine Negative (Negative); Clarity,Urine Clear (Clear); Color,Urine Yellow (Yellow); Glucose,Urine (UA) 100 mg/dL (Normal); Ketones,Urine Negative (Negative); Leukocyte Esterase,Urine Small (Negative); Nitrite,Urine Negative (Negative); PH,Urine 6.5 pH Units (5.0-8.0); Protein,Urine Negative (Neg-Trace); Specific Gravity,Urine 1.016 (1.010-1.025); Urobilinogen,Urine Normal (Normal)
[2017-10-26 20:49] LABS: Bacteria,Urine None Seen per hpf (None-Few); Hyaline Casts,Urine None Seen per lpf (None-Few); RBC,Urine 0-3 per hpf (0-3); Squamous Epithelial Cell,Urine Many per lpf (None-Few)
[2017-10-26] MEDS: Melatonin 3 MG TABLET PO PRN (21:58)
[2017-10-27] MEDS: Acetaminophen 325 MG TABLET PO PRN ×2 (03:11→18:29)
[2017-10-27] MEDS: Levalbuterol Neb 1.25 MG/3 ML IH SCH ×4 (03:59→22:59)
[2017-10-27 06:29] LABS: Basophils % 0.5 %; Eosinophils # 0.4 K/mcL (0.0-0.6); Eosinophils % 5.2 %; Hematocrit 35.3 % (35.3-44.9); Hemoglobin 10.6 g/dL (11.5-15.4); Immature Granulocytes % 0.8 % (0-4); Lymphocytes # 1.2 K/mcL (0.6-4.6); Lymphocytes % 15.5 %; Mean Corpuscular Hemoglobin 28.3 pg (28.0-33.3); Mean Corpuscular Volume 94.4 fL (83.0-100.0); Mean Platelet Volume 9.5 fL (9.4-12.4); Monocytes # 0.8 K/mcL (0.0-1.3); Monocytes % 10.4 %; Neutrophils # 5.1 K/mcL (1.6-8.9); Platelet Count 222 K/mcL (140-400); Red Blood Count 3.74 M/mcL (3.82-4.97); Red Cell Distribution Width 15.4 % (11.5-14.5); Segmented Neutrophils % 67.6 %
[2017-10-27 08:08] LABS: Alanine Aminotransferase 7 Units/L (7-52); Albumin 3.3 g/dL (3.5-5.7); Albumin/Globulin Ratio 1.1 (1.1-2.2); Alkaline Phosphatase 44 Units/L (34-104); Aspartate Amino Transferase 9 Units/L (13-39); BUN/Creatinine Ratio 11 (6-26); Bilirubin,Total 0.4 mg/dL (0.3-1.0); Blood Urea Nitrogen 10 mg/dL (8-23); Calcium 8.8 mg/dL (8.6-10.3); Carbon Dioxide 25 mEq/L (23-29); Chloride 109 mEq/L (98-107); Glucose 139 mg/dL (70-105); Osmolality,Calculated 293 (280-300); Potassium 3.9 mEq/L (3.5-5.1); Sodium 141 mEq/L (136-145); Total Protein 6.3 g/dL (6.4-8.9); eGFR For Non-African Americans > 60 (> 60)
[2017-10-27] MEDS: Piperacillin/Tazobactam 3.375 GM in 0.9 % Sodium Chloride Mini Bag 100 ML IVPB SCH ×3 (08:50→23:57)
[2017-10-27] MEDS: Pantoprazole 40 MG VIAL IVP SCH (08:52)
[2017-10-27] MEDS: predniSONE 1 MG TABLET PO SCH (08:52)
[2017-10-27] MEDS: Cyanocobalamin (B-12) 1,000 MCG TABLET PO SCH (08:52)
[2017-10-27] MEDS: Diltiazem CD (24hr) 240 MG CAPSULE PO SCH (08:53)
[2017-10-27] MEDS: predniSONE 5 MG TABLET PO SCH (08:53)
--- NOTE | 2017-10-27 13:15 | Discharge Summary ---
Date of Encounter: 10/27/17 Time of Encounter: 09:20 - Discharge Diagnosis (1) Atrial fibrillation Priority: Secondary Status: Chronic Assessment and Plan: Chronic. Normal sinus on the monitor. Continue Cardizem and Eliquis by mouth. Qualifiers: Atrial fibrillation type: paroxysmal Qualified Code(s): I48.0 - Paroxysmal atrial fibrillation (2) Pulmonary edema Priority: Secondary Status: Acute Assessment and Plan: Acute pulmonary edema suggesting CHF on CXR. Also noted is cardiomegaly with moderate left and small right pleural effusions. 1.5 L daily fluid restriction even after discharge. Continue daily weights at home. Currently no pedal edema on exam. Lungs are clear and diminished. Current negative fluid deficit of 2 L Pt denies SOB or cough. Qualifiers: Chronicity: acute Qualified Code(s): J81.0 - Acute pulmonary edema (3) Chest pain Priority: Secondary Status: Resolved Assessment and Plan: Pt denies. Stress test negative for ischemia or infarct, patient had occasional PACs with a gated EF of greater than 70%. CT head is negative for PE, and there are multifocal peripheral infiltrates most consistent with pneumonia. Patient was treated with IV Zosyn. Echocardiogram shows an LVEF of 55% with mild LV DD, no significant valvular dysfunction. There is no pulmonary hypertension noted. Chest pain was likely secondary to pneumonia. Pt is not requiring supplemental 02 and is on room air. Qualifiers: Chest pain type: precordial pain Qualified Code(s): R07.2 - Precordial pain (4) Personal history of DVT (deep vein thrombosis) Priority: Secondary Status: Resolved Assessment and Plan: Patient had a popliteal DVT in December,. Patient was on Coumadin at that time but was taken off approximately 1 month ago after GI bleed requiring blood transfusions and 41 today stay at [facility]. Patient has an IVC filter. SCDs were ordered for DVT prophylaxis. (5) SOB (shortness of breath) Priority: Secondary Status: Acute Assessment and Plan: Resolved (6) Weakness of both legs Priority: Secondary Status: Acute Assessment and Plan: Patient had recent hospitalization lasting 41 days, she was then at rehab 2 weeks, then home for 2 weeks. patient now has hospital acquired pneumonia. Likely multifactorial secondary to above, as well as deconditioning and obesity PT/OT recommend SNF, pt states that she wants to go home. She states that she has a walker, wheelchair, and cane, as well as home 02, and states that she has adequate support from family and does not need to go to rehab. (7) DVT prophylaxis Priority: Secondary Status: Acute Assessment and Plan: Bilateral SCDs ordered. Plan as above for DVT (8) HCAP (healthcare-associated pneumonia) Priority: Secondary Status: Acute Assessment and Plan: Patient hospitalized for 41 days at [place] recently for GI bleed. CTA chest showed multi focal peripheral infiltrates most consistent with ammonia. Strep pneumo and legionella are negative. Blood cultures negative. Leukocytosis has resolved, no signs of SIRS or Sepsis. continue Zosyn IV Continue O2 as needed to maintain sats greater than 92%. Continue Xopenex nebulizer treatments 10/27- Pt could be discharged today, however, pt and daughter both state that she is unable to take po antibiotics and need IV antibiotics. The best option for antibiotics is Levaquin po. Pt states that po antibiotics upset her stomach and daughter states that pt will not take them if she has to go home with them. It is Saturday and there is no social work or way to get a peripheral line, so pt will have to stay overnight for reevaluation of discharge tomorrow. I have already started discharge prior to this knowledge, will continue in this document. (9) Hx of thyroidectomy Priority: Secondary Status: Chronic Assessment and Plan: Hx of thyroidectomy. Continue levothyroxine. (10) Obesity (BMI 30-39.9) Priority: Secondary Status: Chronic Assessment and Plan: Chronic. Lifestyle modifications. Hospital course: Ms. Duarte is a 77 year old female with PMH of DVT, thyroidectomy, , catartacts, renal calculi, osteoporosis, Obesity, a-fib. Pt presented with chest pain with radiation to the left shoulder which came worse with exertion. Chest pain was midsternal to radiation to left shoulder with associated fatigue, weakness, shortness of breath, diaphoresis. Patient reports increasing weakness in the month following her recent 40 one-day admission at [place]. Patient has A. fib and had been anticoagulated with warfarin, she was taken off following GI bleed and IVC filter placement. Patient is not currently on anticoagulation. Pt presented with shortness of breath mild leukocytosis. Chest CTA to rule out PE E shows no evidence of PE but did show multifocal peripheral infiltrates most consistent with pneumonia. There is no definite CHF noted. Chest x-ray was indicative of pulmonary edema, cardiomegaly with moderate left and small right pleural effusions. Patient was on a 1.5 L daily fluid restriction, intake and output were monitored, as well as daily weight. Patient had no pedal edema, lungs were clear diminished. Patient had a -2 L fluid deficit. Stress test negative for ischemia or infarct, echo showed an LVEF of 55% with mild LV DD, no significant valvular dysfunction. Blood cultures are negative 2 Legionella and strep pneumo antigens were negative. Patient was treated for 24 hours with IV vancomycin and Zosyn 3.375 g every 8 hours. She had no signs of sepsis. IV vancomycin was stopped, Zosyn continued for 4 days as of today. Patient could be discharged and she is clinically stable and improved. Patient reports that she is unable to take by mouth antibiotics due to stomach upset. We will get social worker school on board for possible placement to finish IV antibiotics, vs home health. Currently, patient is stable, she is not requiring any supplemental oxygen, she has no signs of sirs or sepsis. she is stable currently for discharge, will attempt again in the morning. Discharge discussed with: patient, family - Time Spent with Patient Total time spent providing and/or coordinating discharge services: Less than 30 minutes - Discharge Medications Prescriptions: Cyanocobalamin (B-12) [Vitamin B12] 1,000 mcg PO DAILY #15 tablet Home Medications: Ergocalciferol (VITAMIN D2) [Vitamin D2] 50,000 unit PO QMONTH 03/19/17 [History ] Levothyroxine Sodium 112 mcg PO 0630 03/19/17 [History] Diltiazem CD (24hr) [Cardizem CD] 240 mg PO DAILY 10/24/17 [History] predniSONE [PredniSONE] 2 mg PO DAILY 10/24/17 [History] Cyanocobalamin (B-12) [Vitamin B12] 1,000 mcg PO DAILY #15 tablet 10/27/17 [Rx] Allergies/Adverse Reactions: 3 Allergy/AdvReac Type Severity Reaction Status Date / Time Hydromorphone [From Dilaudid] Allergy Difficulty Verified 10/24/17 11:51 Breathing ibuprofen Allergy Abdominal Verified 10/24/17 11:51 Pain iron AdvReac See Verified 10/24/17 15:37 Comments Date of admission: 10/27/17 12:20 Primary care physician: Sukh Piña MD Discharging clinician: Melina Rogers Anticipated date of discharge: 10/27/17 - Constitutional Vitals: Temp Pulse Resp BP Pulse Ox 97.5 F L 82 16 104/66 96 10/27/17 10:47 10/27/17 10:47 10/27/17 10:47 10/27/17 10:47 10/27/17 10:47 General appearance: Present: cooperative, A&O X 3, pleasant, no acute distress, obese, answers questions appropriately - Head Head exam: Present: atraumatic, normal inspection, normocephalic - Eye Eye exam: Present: normal appearance, conjuntiva pink, sclera anicteric - Neck Neck exam general surgery: Present: supple, trachea midline. Absent: lymphadenopathy, tenderness - Respiratory Respiratory exam: Present: CTAB. Absent: accessory muscle use, chest wall tenderness, rales, respiratory distress, rhonchi, wheezes - Cardiovascular Cardiovascular exam: Present: RRR, +S1, +S2. Absent: diastolic murmur, gallop, rubs, systolic murmur - GI/Abdominal GI/Abdominal exam: Present: normal bowel sounds, soft. Absent: distended, hepatomegaly, tenderness - Extremities Exam Extremities exam: Present: normal capillary refill, normal inspection, warm, radial pulses palpable and symmetrical. Absent: calf tenderness, cyanotic, pedal edema, tenderness - Neurological Exam Neurological exam: Present: alert, oriented X3, no focal deficits. Absent: facial droop, speech deficit - Skin Skin exam: Present: dry, intact, normal color, warm. Absent: rash - Patient Status Disposition: Home, Self-Care Condition: Good Overall status at discharge: patient is progressing back to baseline - Discharge Instructions Follow Up With: Sukh Piña MD [Primary Care Provider] - 11/04/17 2:00 pm - Diet and Activity Activity: increase activity as tolerated Diet: diabetic diet - VTE Documentation of Mechanical Device: Intermittent pneumatic compression device
[2017-10-27] MEDS: Melatonin 3 MG TABLET PO PRN (22:25)
[2017-10-28] MEDS: Levalbuterol Neb 1.25 MG/3 ML IH SCH ×2 (03:57→10:27)
[2017-10-28] MEDS: predniSONE 5 MG TABLET PO SCH (08:16)
[2017-10-28] MEDS: Cyanocobalamin (B-12) 1,000 MCG TABLET PO SCH (08:16)
[2017-10-28] MEDS: Pantoprazole 40 MG VIAL IVP SCH (08:16)
[2017-10-28] MEDS: Piperacillin/Tazobactam 3.375 GM in 0.9 % Sodium Chloride Mini Bag 100 ML IVPB SCH (08:17)
[2017-10-28] MEDS: Diltiazem CD (24hr) 240 MG CAPSULE PO SCH (08:17)
[2017-10-28] MEDS: predniSONE 1 MG TABLET PO SCH (08:30)
[2017-10-28] MEDS ORDERED: Ondansetron ODT 4 MG TAB.RAPDIS SL ONE (09:06)
[2017-10-28] MEDS ORDERED: Azithromycin 250 MG TABLET PO SCH (09:15)
[2017-10-28] MEDS ORDERED: Cefdinir 300 MG CAPSULE PO SCH (09:15)
[2017-10-28] MEDS: Acetaminophen 325 MG TABLET PO PRN (11:51)
[2017-10-28 12:15] VITALS: BP 111/70
--- NOTE | 2017-10-28 12:20 | Discharge Summary ---
Date of Encounter: 10/28/17 Time of Encounter: 08:45 - Discharge Diagnosis (1) Atrial fibrillation Priority: Secondary Status: Chronic Assessment and Plan: Chronic. Rate controlled Continue po Cardizem and Eliquis Qualifiers: Atrial fibrillation type: paroxysmal Qualified Code(s): I48.0 - Paroxysmal atrial fibrillation (2) Pulmonary edema Priority: Secondary Status: Acute Assessment and Plan: Acute pulmonary edema suggesting CHF on CXR. Also noted is cardiomegaly with moderate left and small right pleural effusions. 1.5 L daily fluid restriction even after discharge. Fluid deficit - 2.2 liters Continue daily weights at home. Currently no pedal edema on exam. Lungs are clear and diminished. Current negative fluid deficit of 2 L Pt denies SOB or cough. Qualifiers: Chronicity: acute Qualified Code(s): J81.0 - Acute pulmonary edema (3) Chest pain Priority: Secondary Status: Resolved Assessment and Plan: Pt denies today. Stress test negative for ischemia or infarct, patient had occasional PACs with a gated EF of greater than 70%. CT chest is negative for PE, and there are multifocal peripheral infiltrates most consistent with pneumonia. Echocardiogram shows an LVEF of 55% with mild LV DD, no significant valvular dysfunction. There is no pulmonary hypertension noted. Chest pain was likely secondary to pneumonia. Pt is not requiring supplemental 02 and is on room air. Qualifiers: Chest pain type: precordial pain Qualified Code(s): R07.2 - Precordial pain (4) Personal history of DVT (deep vein thrombosis) Priority: Secondary Status: Resolved Assessment and Plan: Patient had a popliteal DVT in December,. Patient was on Coumadin at that time but was taken off approximately 1 month ago after GI bleed requiring blood transfusions and 41 today stay at [facility]. Patient has an IVC filter. (5) SOB (shortness of breath) Priority: Secondary Status: Acute Assessment and Plan: Resolved. Pt denies and is not requiring oxygen. (6) Weakness of both legs Priority: Secondary Status: Acute Assessment and Plan: Patient had recent hospitalization lasting 41 days, she was then at rehab 2 weeks, then home for 2 weeks. patient now has hospital acquired pneumonia. Likely multifactorial secondary to above, as well as deconditioning and obesity PT/OT recommend SNF, pt states that she wants to go home. She states that she has a walker, wheelchair, and cane, as well as home 02, and states that she has adequate family support and does not need to go to rehab. (7) DVT prophylaxis Priority: Secondary Status: Acute Assessment and Plan: Bilateral SCDs ordered. Plan as above for DVT (8) HCAP (healthcare-associated pneumonia) Priority: Secondary Status: Acute Assessment and Plan: Patient hospitalized for 41 days at [facility] recently for GI bleed. CTA chest showed multi focal peripheral infiltrates most consistent with ammonia. Strep pneumo and legionella are negative. Blood cultures negative. Leukocytosis has resolved, no signs of SIRS or Sepsis. Continue O2 as needed to maintain sats greater than 92%. Continue Xopenex nebulizer treatments 10/27- Pt could be discharged today, however, pt and daughter both state that she is unable to take po antibiotics and need IV antibiotics. The best option for antibiotics is Levaquin po. Pt states that po antibiotics upset her stomach and daughter states that pt will not take them if she has to go home with them. It is Saturday and there is no social work or way to get a peripheral line, so pt will have to stay overnight for reevaluation of discharge tomorrow. I have already started discharge prior to this knowledge, will continue in this document. 10/28- I had a couple of discussions with pharmacy again today. Pt could be covered with po Zithromax and Cefdinir and sent home. Pt was reluctant to try po medications, but she took them with food and Zofran and had no difficulties. She will be discharged on these medications and still maintains that she does not want to go to rehab and wants to go home. Lungs are clear, no rales, ronchi, or wheezing. Pt is not requiring supplemental 02, she denies cough, fever, chills, nausea, vomiting, headache, dizziness. (9) Hx of thyroidectomy Priority: Secondary Status: Chronic Assessment and Plan: Hx of thyroidectomy. Continue levothyroxine. (10) Obesity (BMI 30-39.9) Priority: Secondary Status: Chronic Assessment and Plan: Chronic. Lifestyle modifications. Hospital course: Ms. Duarte is a 77 year old female with PMH of DVT, obesity, A. fib, thyroidectomy. Patient presented to the emergency department with shortness of breath. She was treated for hospital-acquired pneumonia after 41 day stay at [facility] and a 2 week stay at rehabilitation. Patient is being discharged home in stable condition with oral antibiotics. Please see assessment and plan for hospital course. Discharge discussed with: patient, nurse - Time Spent with Patient Total time spent providing and/or coordinating discharge services: Less than 30 minutes - Discharge Medications Prescriptions: Ondansetron ODT [Zofran ODT] 4 mg SL Q6HR PRN #12 tab.rapdis PRN Reason: Nausea Azithromycin [Zithromax] 250 mg PO DAILY #3 tablet Cefdinir [Omnicef] 300 mg PO BID #8 capsule Cyanocobalamin (B-12) [Vitamin B12] 1,000 mcg PO DAILY #15 tablet Home Medications: Ergocalciferol (VITAMIN D2) [Vitamin D2] 50,000 unit PO QMONTH 03/19/17 [History ] Levothyroxine Sodium 112 mcg PO 0630 03/19/17 [History] Diltiazem CD (24hr) [Cardizem CD] 240 mg PO DAILY 10/24/17 [History] predniSONE [PredniSONE] 2 mg PO DAILY 10/24/17 [History] Cyanocobalamin (B-12) [Vitamin B12] 1,000 mcg PO DAILY #15 tablet 10/27/17 [Rx] Azithromycin [Zithromax] 250 mg PO DAILY #3 tablet 10/28/17 [Rx] Cefdinir [Omnicef] 300 mg PO BID #8 capsule 10/28/17 [Rx] Ondansetron ODT [Zofran ODT] 4 mg SL Q6HR PRN #12 tab.rapdis 10/28/17 [Rx] Allergies/Adverse Reactions: 3 Allergy/AdvReac Type Severity Reaction Status Date / Time Hydromorphone [From Dilaudid] Allergy Difficulty Verified 10/24/17 11:51 Breathing ibuprofen Allergy Abdominal Verified 10/24/17 11:51 Pain iron AdvReac See Verified 10/24/17 15:37 Comments Date of admission: 10/27/17 12:20 Primary care physician: Sukh Piña MD Consults: 10/27/17 15:30 Consult to Basket Operator [CONS] Routine Reason for SW Consult: Patient reports that she cannot take PO abx d/t stomach issues. Daughter reports she will not be compliant w/PO abx if discharged d/t issues. Pt. needs to complete IVPB abx therapy for HCAP post-discharge. Discussed temporary ECF placement for this d/t Zosyn being Q8HR administration. Pt. and daughter amenable. Discharging clinician: Melina Rogers Anticipated date of discharge: 10/28/17 - Constitutional Vitals: Temp Pulse Resp BP Pulse Ox 97.8 F 80 15 111/70 94 10/28/17 12:13 10/28/17 12:13 10/28/17 12:13 10/28/17 12:13 10/28/17 12:13 General appearance: Present: cooperative, A&O X 3, pleasant, no acute distress, obese, answers questions appropriately - Head Head exam: Present: atraumatic, normal inspection, normocephalic - Eye Eye exam: Present: normal appearance, conjuntiva pink, sclera anicteric - Neck Neck exam general surgery: Present: supple, trachea midline. Absent: lymphadenopathy, tenderness - Respiratory Respiratory exam: Present: CTAB. Absent: accessory muscle use, chest wall tenderness, rales, respiratory distress, rhonchi, wheezes - Cardiovascular Cardiovascular exam: Present: RRR, +S1, +S2. Absent: diastolic murmur, gallop, rubs, systolic murmur - GI/Abdominal GI/Abdominal exam: Present: normal bowel sounds, soft. Absent: distended, hepatomegaly, tenderness - Extremities Exam Extremities exam: Present: normal capillary refill, normal inspection, warm, radial pulses palpable and symmetrical. Absent: calf tenderness, cyanotic, pedal edema, tenderness - Neurological Exam Neurological exam: Present: alert, oriented X3, no focal deficits. Absent: facial droop, speech deficit - Skin Skin exam: Present: dry, intact, normal color, warm. Absent: rash - Patient Status Disposition: Home, Self-Care Condition: Good Functional capacity at discharge: uses cane/walker Overall status at discharge: patient is progressing back to baseline - Discharge Instructions Follow Up With: Sukh Piña MD [Primary Care Provider] - 11/04/17 2:00 pm Additional Instructions: Please follow up with your PCP as scheduled. Take your medications as directed. Your new prescriptions are at your pharmacy Take your Zofran first, then eat something small, wait 15-20 minutes, then take your antibiotics. Return to the ER as needed for any other problems or concerns, or if your symptoms return or worsen. Return to your normal diet and activities as tolerated. Try to watch your fluid intake (no more than 1.5 liters daily) and decrease your sodium intake. - Diet and Activity Activity: increase activity as tolerated Diet: low fat, low cholesterol, low salt diet - VTE Documentation of Mechanical Device: Intermittent pneumatic compression device
--- NOTE | 2017-10-28 16:38 | Physician Discharge Referral ---
Home Health/Hosp Referral Info Transfer to: Home Health Provider in Charge Post Discharge: PCP - Diagnosis (1) Atrial fibrillation Priority: Secondary Status: Chronic (2) Pulmonary edema Priority: Secondary Status: Acute (3) Chest pain Priority: Secondary Status: Resolved (4) Personal history of DVT (deep vein thrombosis) Priority: Secondary Status: Resolved (5) SOB (shortness of breath) Priority: Secondary Status: Acute (6) Weakness of both legs Priority: Secondary Status: Acute (7) DVT prophylaxis Priority: Secondary Status: Acute (8) HCAP (healthcare-associated pneumonia) Priority: Primary Status: Acute (9) Hx of thyroidectomy Priority: Secondary Status: Chronic (10) Obesity (BMI 30-39.9) Priority: Secondary Status: Chronic - Respiratory Orders Oxygen / L per min Smoking Cessation: Smoking cessation has been advised. For more information, call the [facility] Quit Line at 1-175-EEPS-NOW. - Diet/Nutrition Diet/Nutrition Orders: Regular - Activity Activity Orders: Up ad tatyana - Services Needed Following services are medically necessary services: Nursing, Home Health Aide, Physical Therapy, Occupational Therapy - Transfer Medications Prescriptions: Ondansetron ODT [Zofran ODT] 4 mg SL Q6HR PRN #12 tab.rapdis PRN Reason: Nausea Azithromycin [Zithromax] 250 mg PO DAILY #3 tablet Cefdinir [Omnicef] 300 mg PO BID #8 capsule Cyanocobalamin (B-12) [Vitamin B12] 1,000 mcg PO DAILY #15 tablet Home Medications: Ergocalciferol (VITAMIN D2) [Vitamin D2] 50,000 unit PO QMONTH 03/19/17 [History ] Levothyroxine Sodium 112 mcg PO 0630 03/19/17 [History] Diltiazem CD (24hr) [Cardizem CD] 240 mg PO DAILY 10/24/17 [History] predniSONE [PredniSONE] 2 mg PO DAILY 10/24/17 [History] Cyanocobalamin (B-12) [Vitamin B12] 1,000 mcg PO DAILY #15 tablet 10/27/17 [Rx] Azithromycin [Zithromax] 250 mg PO DAILY #3 tablet 10/28/17 [Rx] Cefdinir [Omnicef] 300 mg PO BID #8 capsule 10/28/17 [Rx] Ondansetron ODT [Zofran ODT] 4 mg SL Q6HR PRN #12 tab.rapdis 10/28/17 [Rx] Allergies/Adverse Reactions: 3 Allergy/AdvReac Type Severity Reaction Status Date / Time Hydromorphone [From Dilaudid] Allergy Difficulty Verified 10/24/17 11:51 Breathing ibuprofen Allergy Abdominal Verified 10/24/17 11:51 Pain iron AdvReac See Verified 10/24/17 15:37 Comments Certification: Further, I certify that my clinical findings support that this patient is homebound (i.e. absences from home require considerable and taxing effort and are for medical reasons or orthodoxy services or infrequently or short duration when for other reasons) because: Homebound Reason: Patient requires assistance of a person or device to safely leave home, Leaving home requires considerable and taxing effort due to condition Attestation: My signature below is to certify that this patient is under my care and that I, or nurse practitioner, or a physician's assistant women's basketball coach working with me, has a face-to -face encounter with this patient.
== END 2017-10-28 15:22 | disposition home or self-care (01) | DRG 195 ==
LOC: 3BNU 11:45 → EMEROO 11:45 → 3BNU 14:56
PROVIDERS: ADMIT Hospitalist; ATTEND Hospitalist